=== PATIENT | female | born 1985 | race Caucasian/White ===

== ENCOUNTER 2024-03-31 15:47 | Observation (INO) | payer OTHER ==
[2024-03-31 16:43] LABS: BASO % 0.3 % (0-2.0); EOS % 0.9 % (0-4.5); HEMATOCRIT 38.1 % (32.4-45.2); HEMOGLOBIN 12.8 GM/dL (10.7-15.3); LYMPH % 17.6 % (8-40); MCH 30.1 pg (25.7-33.7); MCHC 33.5 g/dl (32.0-36.0); MEAN PLT VOLUME 7.5 fl (7.5-11.1); MONO % 12.7 % (3.8-10.2); NEUT % 68.5 % (42.8-82.8); PLATELET COUNT 267 10^3/uL (134-434); RBC 4.23 M/mm3 (3.60-5.2); RDW 13.4 % (11.6-15.6); WHITE BLOOD COUNT 4.8 K/mm3 (4.0-10.0)
[2024-03-31 16:50] LABS: INR 1.06 (0.83-1.09); PROTHROMBIN TIME (PATIENT) 11.6 SEC (9.7-13.0)
[2024-03-31 16:53] LABS: ACTIVATED PTT 29.7 SECONDS (25.2-36.5)
[2024-03-31 17:25] LABS: POTASSIUM 3.7 mmol/L (3.5-5.1)
[2024-03-31 17:27] LABS: ALBUMIN 3.2 g/dl (3.4-5.0); BLOOD UREA NITROGEN 9.5 mg/dL (7-18); CALCIUM 8.7 mg/dL (8.5-10.1); MAGNESIUM 1.8 mg/dL (1.8-2.4)
[2024-03-31 17:30] LABS: CREATININE 0.6 mg/dL (0.55-1.3)
[2024-03-31 17:32] LABS: BILIRUBIN,TOTAL 0.2 mg/dL (0.2-1); TOT PROT 6.9 g/dl (6.4-8.2)
[2024-03-31] MEDS ORDERED: MORPHINE SULFATE 2 MG/ML SYRINGE IVPUSH PRN (18:20)
[2024-03-31 19:16] VITALS: BMI 23.2
[2024-04-01 02:18] VITALS: RESP 18
[2024-04-01 08:08] LABS: HEMATOCRIT 33.5 % (32.4-45.2); HEMOGLOBIN 11.5 GM/dL (10.7-15.3); MCH 30.9 pg (25.7-33.7); MCHC 34.3 g/dl (32.0-36.0); MEAN CELL VOLUME 90.1 fl (80-96); PLATELET COUNT 218 10^3/uL (134-434); RBC 3.72 M/mm3 (3.60-5.2); RDW 13.2 % (11.6-15.6); WHITE BLOOD COUNT 3.8 K/mm3 (4.0-10.0)
[2024-04-01 08:10] LABS: INR 1.15 (0.83-1.09); PROTHROMBIN TIME (PATIENT) 12.6 SEC (9.7-13.0)
[2024-04-01 08:13] LABS: ACTIVATED PTT 28.2 SECONDS (25.2-36.5)
[2024-04-01 08:28] LABS: POTASSIUM 3.5 mmol/L (3.5-5.1)
[2024-04-01 08:31] LABS: ALBUMIN 2.6 g/dl (3.4-5.0); BLOOD UREA NITROGEN 9.3 mg/dL (7-18); CALCIUM 8.2 mg/dL (8.5-10.1)
[2024-04-01 08:33] LABS: MAGNESIUM 1.8 mg/dL (1.8-2.4)
[2024-04-01 08:34] LABS: CREATININE 0.6 mg/dL (0.55-1.3); PHOSPHOROUS 3.8 mg/dL (2.5-4.9)
[2024-04-01 08:35] LABS: BILIRUBIN,TOTAL 0.4 mg/dL (0.2-1)
[2024-04-01 08:36] LABS: TOT PROT 5.7 g/dl (6.4-8.2)
[2024-04-01 13:44] VITALS: BP 94/58; PULSE 91; TEMP 98.2
== END 2024-04-01 15:05 | disposition home or self-care (01) ==
LOC: JER 15:47 → JERBED 17:53 → J7W 18:56
PROVIDERS: ADMIT Internal Medicine; ATTEND Physician Assistant
DX: R74.01 Elevation of levels of liver transaminase levels (principal); K92.9 Disease of digestive system, unspecified; R10.11 Right upper quadrant pain; Z98.84 Bariatric surgery status; Z90.49 Acquired absence of other specified parts of digestive tract; Z88.0 Allergy status to penicillin; Z88.2 Allergy status to sulfonamides; Z88.8 Allergy status to other drugs, medicaments and biological substances
CPT/HCPCS: 36415; 74181-TC; 80053; 83735; 84100; 84703; 85025; 85027; 85610; 85730; 86704; 86708; 86850; 86900; 86901; 87340; 87517; 93005; 93010; 99285-25; G0378